=== PATIENT | male | born 1955 | race Caucasian/White ===

== ENCOUNTER → 2016-08-22 | Outpatient (CLI) | payer OTHER ==
[~2016-08-22] MED LIST: ALBUAER INH; AMOX500T PO; ATOR-22 PO; CALC500C70 PO; LEUP30IN3 IM; LORA-741 PO; LSN20 PO; OXYC-57 PO; UMEC1AER INH; [UNRECOGNIZED DRUG - CODE] PO
== END | disposition home or self-care (01) ==
LOC: C.LABBFT 12:34
PROVIDERS: ATTEND Urology
DX: C61 Malignant neoplasm of prostate (principal)

== ENCOUNTER 2016-09-16 14:43 | Observation (INO) | payer OTHER ==
[~2016-09-16] VITALS: Ht 182.9 cm; Wt 111.0 kg
[~2016-09-16 14:43] MED LIST changes: -AMOX500T PO; -OXYC-57 PO
[2016-09-16] MEDS ORDERED: SODIUM CHLORIDE 0.9% 1000ML 1,000 ML IV ONE (16:15)
--- NOTE | 2016-09-16 16:30 | EMERGENCY ROOM VISIT NOTE ---
History Report prepared by Leigha: Lety Babb Under the Supervision of: Dr. Blaise Meza M.D. First contact with patient: 16:03 Chief Complaint: INFECTION Stated Complaint: INFECTION ON BUTTOCK Nursing Triage Summary: left buttock abscess referred to ER by family NIC to have abscess drained existed for 1 week is draining white fluid History of Present Illness The patient is a 61 year old male who presents to the Emergency Room with complaints of an abscess on his left buttock starting about a week ago and worsening over the past few days. He also complains of severe cramps in his left leg starting yesterday. The patient was prescribed antibiotics by his PCP without relief. He denies fevers, chills, or any other complaints. Source of History: patient Onset: about a week ago Position: buttock (left) Quality: other (abscess) Timing: worsening Modifying Factors (Relieving): other (antibiotics without relief) Associated Symptoms: No chills, No fevers Review of Systems All systems have been listed, reviewed, and are negative other than those previously mentioned. Please see Additional Medical History Sheet. Past Medical & Surgical Medical Problems: (1) Abscess, gluteal, left (2) Hypertension (3) Prostate cancer Surgical Problems: (1) History of appendectomy Family History Cancer Social History Smoking Status: Never Smoker Drug Use: other Marital Status: Housing Status: lives with family Current/Historical Medications Scheduled Atorvastatin (Lipitor), 20 TAB PO DAILY Calcium/Vitamin D (Os-Kip 500 Plus D), 1 TAB PO QAM Ephedrine-Guaifenesin (Primatene Asthma), 2 TAB PO QAM Lisinopril (Lisinopril), 20 MG PO DAILY Umeclidinium-Vilanterol (Anoro Ellipta 62.5-25 Mcg/INH), 1 PUFF INH QAM Scheduled PRN Albuterol (Proventil Hfa), 2 PUFFS INH QID PRN for Shortness of Breath Lorazepam (Ativan), 0.5 MG PO TID PRN for Anxiety Allergies Coded Allergies: No Known Allergies (Unverified , 11/20/15) Physical Exam Vital Signs Date Time Temp Pulse Resp B/P Pulse Ox O2 Delivery O2 Flow Rate FiO2 09/16/16 16:45 94 20 134/83 95 Room Air 09/16/16 14:44 36.9 101 20 143/87 94 Room Air Physical Exam GENERAL: Patient awake, alert, oriented x 3. Patient follows commands. Patient does not appear toxic. Patient is adequately hydrated and well- nourished. SKIN: No erythema, pallor, cyanosis or rash HEENT: Normal head, pupils equal, reactive to light and accommodation. LUNGS: Clear to auscultation. No wheezes, no rales, no rhonchi. HEART: No murmurs. No gallops. No rubs ABDOMEN: Obese, soft, nontender. No masses, no rebound, no hepatomegaly or splenomegaly. EXTREMITIES: No signs of trauma. No pedal or pretibial edema. No calf or thigh tenderness. 10-12 cm indurated, tender, erythematous mass on his left buttock which does not appear to extend to the anus. NEUROLOGIC: Cranial nerves II-XII within normal limits. No gross motor sensory function deficits. Medical Decision & Procedures Laboratory Results 09/16/16 16:27 Red Blood Count 4.55, Mean Corpuscular Volume 91.6, Mean Corpuscular Hemoglobin 30.3, Mean Corpuscular Hemoglobin Concent 33.1, Mean Platelet Volume 9.9, Neutrophils (%) (Auto) 77.1, Lymphocytes (%) (Auto) 15.8, Monocytes (%) (Auto) 5.1, Eosinophils (%) (Auto) 1.5, Basophils (%) (Auto) 0.3, Neutrophils # (Auto) 6.81, Lymphocytes # (Auto) 1.40, Monocytes # (Auto) 0.45, Eosinophils # (Auto) 0.13, Basophils # (Auto) 0.03 09/16/16 16:27 Test 09/16/16 16:27 09/16/16 17:21 09/16/16 17:30 White Blood Count 8.84 K/uL (4.8-10.8) Red Blood Count 4.55 M/uL (4.7-6.1) Hemoglobin 13.8 g/dL (14.0-18.0) Hematocrit 41.7 % (42-52) Mean Corpuscular Volume 91.6 fL (80-100) Mean Corpuscular Hemoglobin 30.3 pg (25-34) Mean Corpuscular Hemoglobin Concent 33.1 g/dl (32-36) Platelet Count 274 K/uL (130-400) Mean Platelet Volume 9.9 fL (7.4-10.4) Neutrophils (%) (Auto) 77.1 % Lymphocytes (%) (Auto) 15.8 % Monocytes (%) (Auto) 5.1 % Eosinophils (%) (Auto) 1.5 % Basophils (%) (Auto) 0.3 % Neutrophils # (Auto) 6.81 K/uL (1.4-6.5) Lymphocytes # (Auto) 1.40 K/uL (1.2-3.4) Monocytes # (Auto) 0.45 K/uL (0.11-0.59) Eosinophils # (Auto) 0.13 K/uL (0-0.5) Basophils # (Auto) 0.03 K/uL (0-0.2) RDW Standard Deviation 46.9 fL (36.4-46.3) RDW Coefficient of Variation 13.9 % (11.5-14.5) Immature Granulocyte % (Auto) 0.2 % Immature Granulocyte # (Auto) 0.02 K/uL (0.00-0.02) Prothrombin Time 10.1 SECONDS (9.0-12.0) Prothromb Time International Ratio 0.9 (0.9-1.1) Activated Partial Thromboplast Time 29.6 SECONDS (21.0-31.0) Partial Thromboplastin Ratio 1.1 Anion Gap 7.0 mmol/L (3-11) Est Creatinine Clear Calc Drug Dose 62.4 ml/min Estimated GFR () 53.1 Estimated GFR (Non- 45.8 BUN/Creatinine Ratio 12.7 (10-20) Calcium Level 8.9 mg/dl (8.5-10.1) Total Bilirubin 0.3 mg/dl (0.2-1) Aspartate Amino Transf (AST/SGOT) 16 U/L (15-37) Alanine Aminotransferase (ALT/SGPT) 31 U/L (12-78) Alkaline Phosphatase 75 U/L (45-117) Total Protein 8.0 gm/dl (6.4-8.2) Albumin 3.2 gm/dl (3.4-5.0) Globulin 4.8 gm/dl (2.5-4.0) Albumin/Globulin Ratio 0.7 (0.9-2) Bedside Lactic Acid Venous 0.77 mmol/L (0.90-1.70) Urine Color YELLOW Urine Appearance CLEAR (CLEAR) Urine pH 5.0 (4.5-7.5) Urine Specific [place] 1.010 (1.000-1.030) Urine Protein 1+ (NEG) Urine Glucose (UA) NEG (NEG) Urine Ketones NEG (NEG) Urine Occult Blood 2+ (NEG) Urine Nitrite NEG (NEG) Urine Bilirubin NEG (NEG) Urine Urobilinogen NEG (NEG) Urine Leukocyte Esterase NEG (NEG) Urine WBC (Auto) 0 /hpf (0-5) Urine RBC (Auto) 0-4 /hpf (0-4) Urine Hyaline Casts (Auto) 1-5 /lpf (0-5) Urine Epithelial Cells (Auto) 5-10 /lpf (0-5) Urine Bacteria (Auto) NEG (NEG) Laboratory results as stated above per my review. Medications Administered Medications (Trade) Dose Ordered Sig/Tatyana Route Start Time Stop Time Status Last Admin Dose Admin Sodium Chloride (Nss 1000ml) 1,000 ml @ 1,000 mls/hr Q1H ONCE IV 09/16/16 16:15 09/16/16 17:14 DC 09/16/16 16:28 1,000 MLS/HR ECG Indication: other (abscess) Rate (beats per minute): 86 Rhythm: normal sinus Findings: no acute ischemic change, no ectopy ED Course 1603: Past medical records reviewed. The patient was evaluated in room A11B. A complete history and physical examination was performed. 1615: Sodium Chloride 1000 ml @ 1000 mls/hr IV 1658: Upon reevaluation, the patient is resting comfortably.I discussed today's findings with him. He verbalized agreement of the treatment plan. I spoke with Dr. Robledo, general surgeon with [facility] to evaluate the patient for further management. 525: I reevaluated the patient. He declined pain medications. Medical Decision Differential diagnosis includes but is not limited to perirectal abscess and perianal abscess. Patient is a very large perirectal abscess. It does not involve the anus. The mass is indurated tender and erythematous. This will require an ID. I discussed care with Dr. Robledo as I did not feel comfortable I&Ding it here in the ED. Labs were evaluated. Please see above. The patient does not appear to be septic. The patient was given IV fluids. Consults Time Called: 1654 Consulting Physician: Dr. Robledo, general surgeon with [facility] Returned Call: [address] Robledo, general surgeon with [facility] to evaluate the patient for further management. Impression Primary Impression: Abscess, gluteal, left Scribe Attestation The scribe's documentation has been prepared under my direction and personally reviewed by me in its entirety. I confirm that the note above accurately reflects all work, treatment, procedures, and medical decision making performed by me. Departure Information Dispostion Being Evaluated By Surgeon Brenden Burns M.D. (PCP) Patient Instructions [facility]
[2016-09-16 16:39] LABS: BASO % 0.3 %; BASO ABS # 0.03 K/uL (0-0.2); COMPLETE YES; EOS % 1.5 %; HEMATOCRIT 41.7 % (42-52); IG% 0.2 %; LYMPH % 15.8 %; MEAN CELL VOLUME 91.6 fL (80-100); MEAN CORPUSCULAR HEMOGLOBIN 30.3 pg (25-34); MEAN CORPUSCULAR HGB CONC 33.1 g/dl (32-36); MEAN PLATELET VOLUME 9.9 fL (7.4-10.4); MONO % 5.1 %; NEUT % 77.1 %; PLATELET COUNT 274 K/uL (130-400); RED BLOOD COUNT 4.55 M/uL (4.7-6.1); WHITE BLOOD COUNT 8.84 K/uL (4.8-10.8)
[2016-09-16 16:51] LABS: INR 0.9 (0.9-1.1); PARTIAL THROMBOPLASTIN RATIO 1.1; PROTHROMBIN TIME (PATIENT) 10.1 SECONDS (9.0-12.0)
[2016-09-16 16:57] LABS: BUN/CREATININE RATIO 12.7 (10-20); CALCIUM 8.9 mg/dl (8.5-10.1); CREATININE 1.6 mg/dl (0.60-1.40); POTASSIUM 4.5 mmol/L (3.5-5.1)
[2016-09-16 17:00] LABS: ALB/GLOB RATIO 0.7 (0.9-2)
[2016-09-16] MEDS ORDERED: FENTANYL CITRATE INJ 50 MCG/1 ML 2 ML VIAL ONE (17:25)
[2016-09-16] MEDS ORDERED: MIDAZOLAM HCL 1 MG/ML 2ML VIAL ONE (17:25)
[2016-09-16] MEDS ORDERED: LIDOCAINE HCL 2% 2 ML VIAL (20MG/ML) ONE (17:29)
[2016-09-16] MEDS ORDERED: ONDANSETRON INJ 2 MG/ML 2 ML VIAL ONE (17:29)
[2016-09-16] MEDS ORDERED: PROPOFOL IV EMULSION 10 MG/ML 20 ML VIAL IV ONE (17:29)
[2016-09-16] MEDS ORDERED: LIDOCAINE HCL 1% 20 ML VIAL ONE (17:41)
[2016-09-16 18:05] LABS: URINE APPEARANCE CLEAR (CLEAR); URINE BILIRUBIN NEG (NEG); URINE COLOR YELLOW; URINE NITRITE NEG (NEG); UROBILINOGEN NEG (NEG); ZZUR CULT IF INDIC CLEAN CATCH NO
[2016-09-16 18:07] LABS: MANUAL MICROSCOPIC REQUIRED? NO; REVIEW REQ? NO
[2016-09-16] MEDS ORDERED: ONDANSETRON INJ 2 MG/ML 2 ML VIAL IV PRN (18:15)
[2016-09-16] MEDS ORDERED: LORAZEPAM 0.5 MG TAB PO PRN (18:30)
[2016-09-16] MEDS ORDERED: ALBUTEROL HFA 8 GM INHALER INH PRN (18:30)
--- NOTE | 2016-09-16 18:45 | HISTORY & PHYSICAL EXAMINATION ---
DATE OF ADMISSION: 09/16/2016 CHIEF COMPLAINT: Pain on the left buttock, lateral to the superior aspect of the gluteal crease. HISTORY OF PRESENT ILLNESS: This is a 61-year-old male who presents to the Emergency Room with a complaint of pain on the left side of his buttock. It began about 4 days ago. It has increased in intensity over the last 4 days. There is erythema of the buttock located lateral to the superior aspect of the gluteal crease. He says it began to drain last night. There was draining this morning as well. He has not had fever, but he has had some nausea and dry heaves. His bowels have been moving. There has been no melena or hematochezia. He has never had a similar episode in the past. PAST MEDICAL HISTORY: Hypertension, and prostate cancer. PAST SURGICAL HISTORY: Appendectomy, robot-assisted prostatectomy, left inguinal hernia, and cyst removed from his right wrist. MEDICATIONS AT HOME: Lipitor, Os-Kip, Primatene, lisinopril, Ellipta. ALLERGIES: None. SOCIAL HISTORY: He does not smoke, and drinks alcohol rarely. PHYSICAL EXAMINATION: GENERAL: Reveals an overweight male who appears in no acute distress. VITAL SIGNS: Blood pressure 134/83, heart rate 94, respirations 20, temperature 36.9, pulse oximetry is 95% on room air. HEENT: Reveals the sclerae to be anicteric. Mucous membranes are moist. NECK: Supple, with no adenopathy. BACK: There is no spinal or CVA tenderness. ABDOMEN: Soft, nondistended, nontender. EXTREMITIES: Examination of the buttock reveals an indurated erythematous area on the left buttock just lateral to the gluteal crease near the superior aspect of that. There are some pores openings with what appear to be purulent drainage. LABORATORY DATA: WBC 8.84, H\T\H is 13.8 and 41.7, platelet count 274,000. Sodium 136, potassium 4.5, chloride 102, CO2 of 27, BUN 20, creatinine 1.6, glucose 101. Bilirubin 0.3, AST 16, ALT 31, alkaline phosphatase 75. ASSESSMENT AND PLAN: This is a buttock abscess on the left side. It was prepped and draped and anesthetized with 1% Xylocaine without epinephrine. I used an 18 gauge needle and attempted to aspirate the area. There was some purulent drainage, but a very very small amount. This was cultured. Incision was made and the spaces below the subcutaneous tissue were opened. There was no drainage encountered. The spaces were opened superiorly and inferiorly along the length of the induration and erythema. This was then irrigated and packed. Dressing was placed. He is going to be admitted with IV antibiotics and for pain control. If things are improving, he will most likely be discharged in the morning.
[2016-09-16 19:15] VITALS: BP 166/79; PULSE 95; TEMP 36.9; O2SAT 94
[2016-09-16 19:37] VITALS: Ht 182.9 cm; Wt 111.0 kg
[2016-09-16] MEDS: D5W AND 1/2NSS + 20MEQ KCL 1,000 ML IV SCH (20:26)
[2016-09-16 20:34] VITALS: BP 170/72; PULSE 89
[2016-09-16] MEDS: LISINOPRIL 20 MG TAB PO SCH (21:29)
[2016-09-16] MEDS: MoRPHine SULFATE 4 MG/ML 1 ML CARP\\VIAL IV PRN (21:30)
[2016-09-16 22:35] VITALS: BP 131/81; PULSE 82; TEMP 37; O2SAT 93
[2016-09-16 23:23] VITALS: BP 109/62; PULSE 82; TEMP 36.9; O2SAT 93
[2016-09-17 00:20] VITALS: O2SAT 93
[2016-09-17] MEDS: AMPICILLIN/SULBACTAM SOD INJ 3,000 MG in SODIUM CHLORIDE 0.9% 100ML 100 ML IV SCH ×3 (00:27→11:51)
[2016-09-17] MEDS: MoRPHine SULFATE 4 MG/ML 1 ML CARP\\VIAL IV PRN ×2 (00:40→04:08)
[2016-09-17 03:59] VITALS: BP 95/61; PULSE 75; TEMP 36.7; O2SAT 94
[2016-09-17 06:33] LABS: BASO % 0.5 %; BASO ABS # 0.03 K/uL (0-0.2); COMPLETE YES; EOS % 2.6 %; HEMATOCRIT 36.2 % (42-52); IG% 0.2 %; LYMPH ABS # 0.68 K/uL (1.2-3.4); MEAN CELL VOLUME 90.5 fL (80-100); MEAN CORPUSCULAR HGB CONC 33.1 g/dl (32-36); MEAN PLATELET VOLUME 9.3 fL (7.4-10.4); MONO % 17.5 %; NEUT % 68.2 %; PLATELET COUNT 230 K/uL (130-400); WHITE BLOOD COUNT 6.16 K/uL (4.8-10.8)
[2016-09-17 07:16] VITALS: BP 105/66; PULSE 80; TEMP 36.9; O2SAT 90
[2016-09-17 07:50] VITALS: O2SAT 90
--- NOTE | 2016-09-17 08:08 | Surgery Progress Note ---
Surgery Progress Note Date of Service Sep 17, 2016. Subjective Post OP Day: 1 + diet (tolerated clear liquids last evening), + feeling well, + nausea, + pain controlled, No SOB, No chest pain, No vomiting Objective Vital Signs: Date Time Temp Pulse Resp B/P Pulse Ox O2 Delivery O2 Flow Rate FiO2 09/17/16 07:16 36.9 80 20 105/66 90 Room Air 09/17/16 03:59 36.7 75 16 95/61 94 Room Air 09/17/16 00:20 93 Room Air 09/16/16 23:23 36.9 82 16 109/62 93 Room Air 09/16/16 22:35 37.0 82 20 131/81 93 Room Air 09/16/16 20:34 89 170/72 09/16/16 19:37 Room Air 09/16/16 19:15 36.9 95 18 166/79 94 Room Air 09/16/16 19:05 Room Air 09/16/16 18:36 89 20 153/84 93 Room Air 09/16/16 16:45 94 20 134/83 95 Room Air 09/16/16 14:44 36.9 101 20 143/87 94 Room Air General Appearance: WD/WN, no apparent distress Head: normocephalic, atraumatic Laboratory Results: Results Past 24 Hours Test 09/16/16 16:27 09/16/16 17:21 09/16/16 17:30 09/17/16 06:05 Range/Units White Blood Count 8.84 6.16 4.8-10.8 K/uL Red Blood Count 4.55 4.00 4.7-6.1 M/uL Hemoglobin 13.8 12.0 14.0-18.0 g/dL Hematocrit 41.7 36.2 42-52 % Mean Corpuscular Volume 91.6 90.5 80-100 fL Mean Corpuscular Hemoglobin 30.3 30.0 25-34 pg Mean Corpuscular Hemoglobin Concent 33.1 33.1 32-36 g/dl Platelet Count 274 230 130-400 K/uL Mean Platelet Volume 9.9 9.3 7.4-10.4 fL Neutrophils (%) (Auto) 77.1 68.2 % Lymphocytes (%) (Auto) 15.8 11.0 % Monocytes (%) (Auto) 5.1 17.5 % Eosinophils (%) (Auto) 1.5 2.6 % Basophils (%) (Auto) 0.3 0.5 % Neutrophils # (Auto) 6.81 4.20 1.4-6.5 K/uL Lymphocytes # (Auto) 1.40 0.68 1.2-3.4 K/uL Monocytes # (Auto) 0.45 1.08 0.11-0.59 K/uL Eosinophils # (Auto) 0.13 0.16 0-0.5 K/uL Basophils # (Auto) 0.03 0.03 0-0.2 K/uL RDW Standard Deviation 46.9 46.3 36.4-46.3 fL RDW Coefficient of Variation 13.9 13.9 11.5-14.5 % Immature Granulocyte % (Auto) 0.2 0.2 % Immature Granulocyte # (Auto) 0.02 0.01 0.00-0.02 K/uL Prothrombin Time 10.1 9.0-12.0 SECONDS Prothromb Time International Ratio 0.9 0.9-1.1 Activated Partial Thromboplast Time 29.6 21.0-31.0 SECONDS Partial Thromboplastin Ratio 1.1 Sodium Level 136 136-145 mmol/L Potassium Level 4.5 3.5-5.1 mmol/L Chloride Level 102 98-107 mmol/L Carbon Dioxide Level 27 21-32 mmol/L Anion Gap 7.0 3-11 mmol/L Blood Urea Nitrogen 20 7-18 mg/dl Creatinine 1.60 0.60-1.40 mg/dl Est Creatinine Clear Calc Drug Dose 62.4 ml/min Estimated GFR () 53.1 Estimated GFR (Non- 45.8 BUN/Creatinine Ratio 12.7 10-20 Random Glucose 101 70-99 mg/dl Calcium Level 8.9 8.5-10.1 mg/dl Total Bilirubin 0.3 0.2-1 mg/dl Aspartate Amino Transf (AST/SGOT) 16 15-37 U/L Alanine Aminotransferase (ALT/SGPT) 31 12-78 U/L Alkaline Phosphatase 75 45-117 U/L Total Protein 8.0 6.4-8.2 gm/dl Albumin 3.2 3.4-5.0 gm/dl Globulin 4.8 2.5-4.0 gm/dl Albumin/Globulin Ratio 0.7 0.9-2 Hepatitis C Antibody Screen NEG NEG Bedside Lactic Acid Venous 0.77 0.90-1.70 mmol/L Urine Color YELLOW Urine Appearance CLEAR CLEAR Urine pH 5.0 4.5-7.5 Urine Specific [place] 1.010 1.000-1.030 Urine Protein 1+ NEG Urine Glucose (UA) NEG NEG Urine Ketones NEG NEG Urine Occult Blood 2+ NEG Urine Nitrite NEG NEG Urine Bilirubin NEG NEG Urine Urobilinogen NEG NEG Urine Leukocyte Esterase NEG NEG Urine WBC (Auto) 0 0-5 /hpf Urine RBC (Auto) 0-4 0-4 /hpf Urine Hyaline Casts (Auto) 1-5 0-5 /lpf Urine Epithelial Cells (Auto) 5-10 0-5 /lpf Urine Bacteria (Auto) NEG NEG Microbiology Results 09/16/16 Gram Stain - Final, Resulted 09/16/16 Bacterial Culture, Resulted Pending Left Gluteus: Erythema around incision and some induration, no fluctuance. No streaking or spreading erythema compared to last evening. Slight tenderness on palpation. No necrotic tissue present. Serosanguineous drainage. Assessment & Plan Left Gluteal Cellulitis - vital signs stable - no leukocytosis - no evidence of increasing cellulitis Plan: Advance diet to regular diet Start PO pain medication prn Continue IV fluids until discharge Discharge this afternoon after lunch Will give Rx for Percocet and Rx for Augmentin 500 mg BID x 10 days will follow-up in office tomorrow for packing change and Friday for office visit Dr. Robledo has seen and examined patient agrees with above stated findings and treatment plan.
[2016-09-17] MEDS ORDERED: OXYCODONE/ACETAMINOPHEN 5-325 TAB PO PRN (08:30)
[2016-09-17] MEDS ORDERED: OXYC-57 PO (08:32)
[2016-09-17] MEDS ORDERED: AMOX500T PO (08:32)
--- NOTE | 2016-09-17 08:38 | Discharge Instructions ---
Discharge Instructions Admission Reason for Admission: Abscess, Gluteal, Left Discharge Discharge Diagnosis / Problem: Left Gluteal abscess /cellulitis Discharge Goals Goal(s): Decrease discomfort Activity Recommendations Activity Limitations: per Instructions/Follow-up section Lifting Limitations: none Exercise/Sports Limitations: until after follow-up appointment May Resume Sexual Activity: after two weeks Shower/Bathe: tomorrow Driving or Machine Use: YOU MAY DRIVE IF YOU ARE NOT TAKING ANY NARCOTIC PAIN MEDICATION . Instructions / Follow-Up Instructions / Follow-Up Please keep incision area clean and dry as much as possible You may shower No submerging incision underwater Come into office tomorrow to change packing by the nurses. Office number is . We will want to see you in Office this Friday for an office visit with Dr. Robledo. Please call office to make an appointment time for both tomorrow for packing change and for Friday. Current Hospital Diet Patient's current hospital diet: Regular Diet Discharge Diet Recommended Diet: Regular Diet Pending Studies Studies pending at discharge: no Laboratory Results Lipid Panel Test 06/26/16 16:00 Range/Units Triglycerides Level 131 0-150 mg/dl Cholesterol Level 153 0-200 mg/dl HDL Cholesterol 50 mg/dl Cholesterol/HDL Ratio 3.1 LDL Cholesterol, Calculated 77 mg/dl Medical Emergencies . Who to Call and When: Medical Emergencies: If at any time you feel your situation is an emergency, please call 911 immediately. . Non-Emergent Contact Non-Emergency issues call your: Primary Care Provider, Surgeon Call Non-Emergent contact if: temperature is above 101.5, your pain is not controlled, your pain is worsening, wound has increased drainage, wound has increased redness, wound has increased pain . "Provider Documentation" section prepared by Ana Rosa Morrison. VTE Core Measure Inpt VTE Proph given/why not?: SCD's [place] Drug Monitoring Program Search Results: patient reviewed within database, no issues identified
[2016-09-17] MEDS ORDERED: ATORVASTATIN 20 MG TAB PO SCH (09:00)
[2016-09-17] MEDS ORDERED: CALCIUM 600MG + VIT D 400 IU TAB PO SCH (09:00)
[2016-09-17] MEDS: D5W AND 1/2NSS + 20MEQ KCL 1,000 ML IV SCH (09:15)
[2016-09-17 09:17] VITALS: BP 137/77; PULSE 90
[2016-09-17] MEDS: LISINOPRIL 20 MG TAB PO SCH (09:18)
[2016-09-17 09:22] VITALS: BP 137/77; PULSE 90; TEMP 36.9; O2SAT 90
--- NOTE | 2016-09-24 01:23 | DISCHARGE SUMMARY ---
PRINCIPAL DIAGNOSIS: Abscess on the right buttock. SECONDARY DIAGNOSES: Include hypertension and history of prostate cancer. PRINCIPAL PROCEDURE: I\T\D of buttock abscess. SECONDARY PROCEDURE: None. CONSULTATIONS: None. HOSPITAL COURSE AND PHYSICAL: As per dictated H\T\P with no additions or deletions. BRIEFLY: This 61-year-old male who presents to the Emergency Room with complaint of pain in the left buttock that began 4 days prior to admission. The intensity had increased steadily over those 4 days. It began to drain the night before. There was no fever or chills. He did have some nausea. On examination of the buttock, there was induration and erythematous area on the left buttock lateral to the gluteal crease near the superior aspect of that. The white blood cell count was 8.84 and H\T\H was 13.8 and 41.7. HOSPITAL COURSE: An I\T\D of the buttock was performed in the Emergency Room. This was not a perirectal abscess. It was done under local anesthesia. There was very little purulent material that was able to be removed; however, what was removed was sent for culture. After discharge, it proved to be MRSA. His antibiotic had been changed after hospital discharge. On the next day, the erythema had decreased. His level of pain had decreased significantly. He was discharged to home in stable condition. DISCHARGE MEDICATIONS: Included the albuterol, atorvastatin, Os-Kip, Primatene, lisinopril, lorazepam and Anoro Ellipta. He was also given a dose Augmentin and Percocet for pain. Again, the Augmentin was eventually changed to Bactrim after discharge. DISCHARGE INSTRUCTIONS: He was to follow up with me in 2 days for removal of the packing and reevaluation. STEPHANIE
== END 2016-09-17 13:49 | disposition home or self-care (01) ==
LOC: ENRESERVDT → ENRESERVTM → C.EDB 14:44 → C.MSN 18:19 → EDBEDREQ 18:28
PROVIDERS: ADMIT Surgery; ATTEND Surgery
DX: L02.31 Cutaneous abscess of buttock (principal); I10 Essential (primary) hypertension; Z79.899 Other long term (current) drug therapy; Z85.46 Personal history of malignant neoplasm of prostate; E66.3 Overweight; Z68.33 Body mass index [BMI] 33.0-33.9, adult

== ENCOUNTER → 2016-10-14 | Outpatient (CLI) | payer OTHER ==
[~2016-10-14] MED LIST changes: -LEUP30IN3 IM; +OXYC-57 PO
--- NOTE | 2016-10-14 15:06 | DIAGNOSTIC IMAGING REPORT ---
CHEST CT WITHOUT CONTRAST CT DOSE: 645.64 mGycm HISTORY: Pulmonary nodule PULMONARY NODULES TECHNIQUE: Multiaxial CT images of the chest were performed without contrast. COMPARISON: 03/13/2016 FINDINGS: Stable findings of bullous emphysematous change. Continued improvement of the parenchymal nodularity with minimal residual. Pleural thickening bilaterally moderately diminished. No new or interval finding. No significant cardiac enlargement Limited evaluation of the upper abdomen is unremarkable. IMPRESSION: Improved exam. Stable bullous emphysematous change. Improved pleural thickening and pulmonary nodularity with minimal residual Electronically signed by: Keyon Kaplan M.D. 10/14/2016 3:05 PM Dictated Date/Time: 10/14/2016 3:02 PM
== END | disposition home or self-care (01) ==
LOC: C.CTS 14:35
PROVIDERS: ATTEND Surgery
DX: R91.8 Other nonspecific abnormal finding of lung field (principal)

== ENCOUNTER → 2017-02-18 | Outpatient (CLI) | payer OTHER | END | disposition home or self-care (01) | LOC: C.LABBFT 11:31 | PROVIDERS: ATTEND Urology | DX: C61 Malignant neoplasm of prostate (principal) ==

== ENCOUNTER → 2017-06-05 | Outpatient (CLI) | payer OTHER ==
[~2017-06-05] MED LIST changes: -OXYC-57 PO
[2017-06-05 13:16] VITALS: BP 120/72; PULSE 80; TEMP 36.7; O2SAT 96
--- NOTE | 2017-06-05 14:44 | Radiation Oncology Follow-Up ---
Radiation Oncology Follow-Up Date of Visit Jun 05, 2017. Reason For Visit Annual follow up Radiation Completion Date finished IMRT / IGRT 10-30-15 Diagnosis (1) Prostate cancer Status: Resolved Onset Date: 05/28/2005 Location: both lobes of the prostate Histology Subtype: adenocarcinoma Stage: lll Permanent Comment: Rising PSA to 3.68 Status post ultrasound-guided biopsies [place] 3+3 Biopsy staged T2b Patient chose watchful waiting Rising PSA to 20.26 Repeat biopsy 08/16/2014 biopsy stage T2c [place] score 3+3, 3+4, 4+3 and 4+5 Initiation of Lupron therapy October 2014 Status post prostatectomy 04/26/2015 Harpreet 4+5 with seminal vesicle involvement, positive margin and perineural invasion Stage pT3 pN0 M0 Rising PSA to 0.017 08/11/2015 Status post completion of salvage radiation therapy utilizing IMRT/IGRT completed 10/30/2015 received 7020 cGy Last Edited By: Steffi Joshua on Nov 03, 2015 11:13 History of Present Illness Mr. Cortés has had a history of prostate cancer since 2004. He had an elevated PSA at 3.68. He underwent an ultrasound-guided biopsy 05/28/2005. This revealed adenocarcinoma with a Harpreet 3+3 at the left apex. This involved 70% of the core. Biopsy of the left mid revealed Harpreet 3+3 and 20% of the core. Left base adenocarcinoma [place] 3+310% of the core. The remainder of the biopsies were benign Patient chose watchful waiting. He also had some issues with insurance. He was followed with serial PSAs. The PSA christa to 20.26. He underwent a recheck biopsy 08/16/2014. This revealed adenocarcinoma 4+3 at the left base 90% of the core. Harpreet 3+4 at the right base 60% of the core. Left mid showed [place] 4+3 with 80% of the core. The right mid had a 3+3 less than 5% of the core. Left apex 4+5 with 60% of the core. There was also perineural invasion at the left base and right base. He had been initially seen in our office 03/10/2014 prior to the second biopsy. He then had a follow-up 09/02/2014. We reviewed his rebiopsy information. Treatment options have been discussed with him. Ultimately he chose to undergo hormone suppression followed by seed implant and then external beam treatment. He presented for an arch study in September and was found to have tightness of the arch. Decision at that time was to start the Lupron therapy and repeat check the arch study again in 3-4 months He did receive his Lupron injection 10/06/2014. He received a 30 mg dose. He had a Lupron injection in April 2015. Most recently a Lupron injection 08/16/2015 He ultimately made the decision to undergo prostatectomy. That was carried out on 04/26/2015. This revealed a Harpreet of 4+5. Both the seminal vesicles were involved. There was positive margin at the left apex. There was extensive perineural invasion. 6 lymph nodes were evaluated and were negative for metastatic disease. AJCC pathologic stage was pT3 [id number] He's been followed closely by Dr. Xavier and has had recheck PSAs. PSA on 08/2014 was 0.354. His PSA on 05/05/2015 was 0.108. His PSA on 08/11/2015 was 0.017. Due to the high [place] score patient has been referred to our office to discuss salvage radiation therapy. He completed salvage radiation therapy 10/30/2015. He received 7020 cGy. Interim History He has been doing well from urinary standpoint. Today he gave an AUA score of 3. He does not require any medication to help with urination. He completed and expanded prostate cancer index composite for clinical practice. He gave a score of 2 of 12 urinary incontinence symptoms. He gave a score of 0 of 12 urinary irritation symptoms. He gave a score of 0 of 12 bowel symptoms. He gave a score of 9 of 12 in sexual symptoms. He was score of one of 12 and hormonal vitality symptoms. His total was 12 of 60. He has had recheck PSAs and these have been less than 0.010. The most recent was 02/18/2017. Allergies Coded Allergies: No Known Allergies (Unverified , 11/20/15) Home Medications Scheduled Atorvastatin (Lipitor), 20 TAB PO DAILY Calcium/Vitamin D (Os-Kip 500 Plus D), 1 TAB PO QAM Ephedrine-Guaifenesin (Primatene Asthma), 2 TAB PO QAM Lisinopril (Lisinopril), 20 MG PO DAILY Umeclidinium-Vilanterol (Anoro Ellipta 62.5-25 Mcg/INH), 1 PUFF INH QAM Scheduled PRN Albuterol (Proventil Hfa), 2 PUFFS INH QID PRN for Shortness of Breath Lorazepam (Ativan), 0.5 MG PO TID PRN for Anxiety Review of Systems Gastrointestinal: Symptoms: WNL Oral: Symptoms: No Problems Respiratory: Symptoms: SOB With Exertion Respiratory Comments: I have COPD Other Respiratory: " stopped smoking in January 2016 " Urinary: Symptoms: Nocturia Comments: occ dribbling, nocturia times 2-3 Skin: Symptoms: No Problems Physical Exam Vital Signs Date Time Temp Pulse Resp B/P (MAP) Pulse Ox O2 Delivery O2 Flow Rate FiO2 06/05/17 13:16 36.7 80 20 120/72 96 Pain: Side: Bilateral Patient Pain Scale: 0 - 10 Initial Pain Intensity: 0.0 Fatigue: None General Appearance: no apparent distress Eyes: normal inspection, EOMI ENT: normal ENT inspection, hearing grossly normal Respiratory/Chest: lungs clear, no respiratory distress, no accessory muscle use Cardiovascular: regular rate, rhythm, no gallop, no murmur Abdomen: non tender, soft, no organomegaly Anal / Rectum: Normal sphincter tone. No rectal masses no rectal bleeding. Prostate bed is flat. 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 Extremities: no pedal edema Neurologic/Psychiatric: no motor/sensory deficits, alert, normal mood/affect Skin: warm/dry Assessment & Plan Plan: Continue PSAs every 6 months. Continue regular follow-up with Dr. Morrow and Dr. Xavier. We asked him to return to our office in 1 year. He may call if he has any questions or concerns. He previously had a DEXA scan that was normal. This was performed to prolong hormonal suppression. Hormone suppression is now complete. He may feel office if he has any questions or concerns. Total Time In Follow-Up I spent 20 minutes speaking to the patient and performing examination. I spent 15 minutes reviewing information and completing this note. Copy To Brenden Morrow M.D.; Brenden Xavier M.D.
== END | disposition home or self-care (01) ==
LOC: C.ONC 13:08
PROVIDERS: ATTEND Physician Assistant Medical
DX: Z08 Encounter for follow-up examination after completed treatment for malignant neoplasm (principal); Z92.3 Personal history of irradiation; Z85.46 Personal history of malignant neoplasm of prostate

== ENCOUNTER → 2017-08-14 | Outpatient (CLI) | payer OTHER | END | disposition home or self-care (01) | LOC: C.LABBFT 15:42 | PROVIDERS: ATTEND Urology | DX: N52.9 Male erectile dysfunction, unspecified (principal) ==

== ENCOUNTER → 2017-08-29 | Outpatient (CLI) | payer OTHER ==
[2017-08-29 12:36] LABS: HEMATOCRIT 41.4 % (42-52); HEMOGLOBIN 13.4 g/dL (14.0-18.0); MEAN CELL VOLUME 94.1 fL (80-100); MEAN CORPUSCULAR HEMOGLOBIN 30.5 pg (25-34); MEAN CORPUSCULAR HGB CONC 32.4 g/dl (32-36); MEAN PLATELET VOLUME 10.3 fL (7.4-10.4); PLATELET COUNT 228 K/uL (130-400); RED CELL DISTRIBUTION WIDTH CV 14.1 % (11.5-14.5); RED CELL DISTRIBUTION WIDTH SD 48.5 fL (36.4-46.3); WHITE BLOOD COUNT 5.02 K/uL (4.8-10.8)
[2017-08-29 13:00] LABS: ALBUMIN 3.6 gm/dl (3.4-5.0); ALKALINE PHOSPHATASE 63 U/L (45-117); ALT/SGPT 25 U/L (12-78); AST/SGOT 12 U/L (15-37); BLOOD UREA NITROGEN 41 mg/dl (7-18); CALCIUM 8.6 mg/dl (8.5-10.1); CARBON DIOXIDE 25 mmol/L (21-32); CHOLESTEROL 193 mg/dl (0-200); CREATININE 1.76 mg/dl (0.60-1.40); GLUCOSE 105 mg/dl (70-99); LDL CHOLESTEROL CALCULATED 117 mg/dl; POTASSIUM 5.3 mmol/L (3.5-5.1); SODIUM 133 mmol/L (136-145); TOTAL PROTEIN 8.2 gm/dl (6.4-8.2); URIC ACID 8.3 mg/dl (2.6-7.2)
== END | disposition home or self-care (01) ==
LOC: C.LABBFT 08:50
PROVIDERS: ATTEND Physician Assistant Medical
DX: I10 Essential (primary) hypertension (principal); E78.5 Hyperlipidemia, unspecified; M79.676 Pain in unspecified toe(s)

== ENCOUNTER → 2017-09-01 | Outpatient (CLI) | payer OTHER ==
[2017-09-01 17:26] LABS: BLOOD UREA NITROGEN 24 mg/dl (7-18); CALCIUM 9.5 mg/dl (8.5-10.1); CARBON DIOXIDE 25 mmol/L (21-32); CREATININE 1.47 mg/dl (0.60-1.40); GLUCOSE 79 mg/dl (70-99); POTASSIUM 4.6 mmol/L (3.5-5.1); SODIUM 140 mmol/L (136-145)
== END | disposition home or self-care (01) ==
LOC: C.LABBFT 15:11
PROVIDERS: ATTEND Physician Assistant Medical
DX: N17.9 Acute kidney failure, unspecified (principal)

== ENCOUNTER → 2017-09-11 | Outpatient (CLI) | payer OTHER ==
[2017-09-11 17:44] LABS: BLOOD UREA NITROGEN 23 mg/dl (7-18); CALCIUM 8.8 mg/dl (8.5-10.1); CARBON DIOXIDE 26 mmol/L (21-32); CREATININE 1.34 mg/dl (0.60-1.40); GLUCOSE 77 mg/dl (70-99); SODIUM 137 mmol/L (136-145)
== END | disposition home or self-care (01) ==
LOC: C.LABBFT 15:12
PROVIDERS: ATTEND Physician Assistant Medical
DX: N17.9 Acute kidney failure, unspecified (principal)

== ENCOUNTER → 2017-10-06 | Outpatient (CLI) | payer OTHER ==
--- NOTE | 2017-10-06 12:37 | DIAGNOSTIC IMAGING REPORT ---
(RENAL)RETROPERITON COMP HISTORY: 62 years-old Male R80.9 Proteinuria symptoms are acute in nature COMPARISON: PET CT 11/22/2015 TECHNIQUE: Multiple real-time sonographic images of the kidneys and urinary bladder were obtained assessing grayscale appearance and color flow FINDINGS: The right kidney measures 10.4 x 4.6 x 5.8 cm and is unremarkable without renal calculi, hydronephrosis or focal renal mass lesion. There is a probable column of Terrell within the left kidney interpolar region. The left kidney measures 10.5 x 5.3 x 6.4 cm demonstrates no renal calculi or hydronephrosis. Mild cortical thinning is noted on the left. No suspicious mass lesions. Urinary bladder is partially decompressed and otherwise within normal limits. Only the left ureteral jet is identified. Increased echogenicity of the liver incidentally noted compatible with fatty infiltration IMPRESSION: 1. Mild cortical thinning noted within the left kidney. No renal calculi or hydronephrosis. 2. Partially decompressed urinary bladder lumen. 3. Hepatic steatosis. The above report was generated using voice recognition software. It may contain grammatical, syntax or spelling errors. Electronically signed by: Magdy Aguilera M.D. 10/06/2017 12:36 PM Dictated Date/Time: 10/06/2017 12:33 PM
== END | disposition home or self-care (01) ==
LOC: C.ULTR 12:01
PROVIDERS: ATTEND Internal Medicine Nephrology
DX: R80.9 Proteinuria, unspecified (principal)

== ENCOUNTER → 2017-10-08 | Outpatient (CLI) | payer OTHER ==
[2017-10-08 17:56] LABS: HEMATOCRIT 41.8 % (42-52); HEMOGLOBIN 13.4 g/dL (14.0-18.0); MEAN CELL VOLUME 95.7 fL (80-100); MEAN CORPUSCULAR HEMOGLOBIN 30.7 pg (25-34); MEAN CORPUSCULAR HGB CONC 32.1 g/dl (32-36); MEAN PLATELET VOLUME 10.2 fL (7.4-10.4); PLATELET COUNT 238 K/uL (130-400); RED CELL DISTRIBUTION WIDTH CV 14.1 % (11.5-14.5); RED CELL DISTRIBUTION WIDTH SD 49.4 fL (36.4-46.3); WHITE BLOOD COUNT 5.63 K/uL (4.8-10.8)
[2017-10-08 18:13] LABS: ALBUMIN 3.4 gm/dl (3.4-5.0); ALT/SGPT 26 U/L (12-78); AST/SGOT 14 U/L (15-37); BLOOD UREA NITROGEN 19 mg/dl (7-18); CALCIUM 8.1 mg/dl (8.5-10.1); CARBON DIOXIDE 25 mmol/L (21-32); CREATININE 1.48 mg/dl (0.60-1.40); GLUCOSE 106 mg/dl (70-99); POTASSIUM 4.2 mmol/L (3.5-5.1); SODIUM 140 mmol/L (136-145)
[2017-10-08 18:18] LABS: ALKALINE PHOSPHATASE 57 U/L (45-117); TOTAL PROTEIN 7.3 gm/dl (6.4-8.2)
== END | disposition home or self-care (01) ==
LOC: C.LABBFT 11:56
PROVIDERS: ATTEND Internal Medicine Nephrology
DX: R80.9 Proteinuria, unspecified (principal)

== ENCOUNTER → 2017-10-28 | Outpatient (CLI) | payer OTHER ==
--- NOTE | 2017-10-30 19:02 | POLYSOMNOGRAPH REPORT ---
SLEEP STUDY REPORT CLINICAL DATA: The patient is a 62-year-old male with a history of snoring, disturbed nocturnal sleep, and excessive daytime somnolence. His [place] sleepiness scale score is 11. On the evening of 10/28/2017, a home sleep apnea test was performed using the Gamerius type 3 monitor. RECORDING RESULTS: The total recording time was 10 hours. The patient's estimated sleep time was 7.1 hours. RESPIRATORY DATA: The patient had a total of 89 respiratory events including 20 obstructive apneas, 2 central apneas, and 67 hypopneas. Hypopneas were scored according to the 4% desaturation rule. The SUSHILA was 12.5. This reflects mild sleep apnea. The maximum respiratory event was 41 seconds. OXIMETRY DATA: The mean saturation for the night was 91%. The minimum saturation was 76%. There was an estimated 35 minutes with saturations less than 89%. HEART RATE DATA: The minimum heart rate was 56 beats per minute. The mean heart rate was 67 beats per minute. SNORING DATA: The patient had snoring throughout the test. IMPRESSION: Mild obstructive sleep apnea. RECOMMENDATIONS: 1. It would be advised that he be given a trial of nasal CPAP. This could be accomplished by an in-lab CPAP titration. Alternatively, he could have treatment with an auto CPAP. 2. Weight reduction is advised in light of the elevation of BMI of 32.76. 3. It is suggested that the patient avoid sleeping in supine position.
== END | disposition home or self-care (01) ==
LOC: C.NEUR 08:45
PROVIDERS: ATTEND Internal Medicine Pulmonary Disease
DX: G47.33 Obstructive sleep apnea (adult) (pediatric) (principal)